=== PATIENT | male | born 1980 | race Caucasian/White ===

== ENCOUNTER 2023-02-09 21:13 | Emergency (ER) | payer OTHER, SELFPAY ==
[2023-02-09 21:15] VITALS: BP 155/101; PULSE 98; RESP 16; TEMP 36.6; O2SAT 99; BMI 28.2
--- NOTE | 2023-02-09 21:28 | EKG12_ITS ---
Test Reason : CP Blood Pressure : / mmHG Vent. Rate : 088 BPM Atrial Rate : 088 BPM P-R Int : 140 ms QRS Dur : 078 ms QT Int : 342 ms P-R-T Axes : 030 055 025 degrees QTc Int : 413 ms Normal sinus rhythm Normal ECG Confirmed by MAYA SAMS, GLORIA ([id number]), associate entertainment editor DENITA CORNELL ([id number]) on 02/12/2023 7:36:19 AM Referred By: Confirmed By:GLORIA TREJO MD
[2023-02-09 21:35] VITALS: O2SAT 99
[2023-02-09 21:39] LABS: Absolute Lymphocyte Count 2.84 X10^3/uL (0.83-4.51); Absolute Neutrophil Count 3.5 X10^3/uL (2.0-7.7); Basophil# 0.04 X10^3/uL; Basophil% 0.5 % (0-1); Eosinophil# 0.39 X10^3/uL; Eosinophils% 5.1 % (0-5); Hematocrit 45.7 % (40-54); Hemoglobin 15.2 g/dL (13.0-16.5); Lymphocyte # 2.84 X10^3/ul (0.83-4.51); Lymphocyte % 37.1 % (19-41); Mean Corp Hgb Conc 33.3 g/dL (32-36); Mean Corpuscular Hgb 29.4 pg (27.0-32.0); Mean Corpuscular Volume 88.4 fL (80-94); Mean Platelet Vol. 8.4 fl (6.2-12.0); Monocyte# 0.88 X10^3/uL; Monocyte% 11.5 % (0-10); NRBC Flagged by Analyzer 0 % (0-5); Neutrophil % 45.7 % (47-70); Platelet Count 387 K/mm3 (150-450); RBC Distribution Width CV 12.9 % (11.6-14.6); RBC Distribution Width SD 41.9 fl (35.1-43.9); Red Blood Count 5.17 M/mm3 (4.6-6.2); White Blood Count 7.7 K/mm3 (4.4-11.0)
--- NOTE | 2023-02-09 21:40 | RAD_ITS ---
STUDY: X-RAY CHEST REASON FOR EXAM: Male, 42 years old. chest pain TECHNIQUE: Single AP portable view of the chest. COMPARISON: None. FINDINGS: The lungs are clear and expanded. There is no demonstrated pleural abnormality. Normal size heart. Normal mediastinum and shahriar. Normal visualized pulmonary arteries. Normal visualized aortic arch and descending thoracic aorta. Normal visualized thoracic spine. Normal visualized ribs, clavicles, and shoulders. There is no demonstrated abnormality of the visualized soft tissue structures of the upper abdomen. RAD/Chest 1 View (Portable) IMPRESSION: Normal x-ray examination of the chest. Electronically Signed: Lowell Contreras MD at 21:58 EDT ,
[2023-02-09 22:20] LABS: Anion Gap 6 (5-15); BUN 17 mg/dL (7-18); BUN/Creat Ratio 15.7 RATIO (10-20); Calcium,Total 8.9 mg/dL (8.5-10.1); Chloride 103 mmol/L (98-107); Creatinine, Serum 1.08 mg/dL (0.70-1.30); EST Glomerular Filtration Rate 80 mL/min (>60); Est Glom Filt Rate - Afr Amer 97 mL/min (>60); Estimated Creatinine Clearance 96.84 ml/min; Glucose 95 mg/dL (74-106); Potassium 3.6 mmol/L (3.5-5.1); Sodium Level 138 mmol/L (136-145); Troponin-I HS (w/2H Reflex) 7 pg/mL (3.0-78.0)
--- NOTE | 2023-02-09 22:42 | EDS_ITS ---
HPI History of Present Illness Chief Complaint: Chest Pain Narrative Narrative: 42-year-old male presenting with chest pain. He states has been having this on and off for about 3 months. Its on the left side of his chest and radiates to the left shoulder. Patient [place] and he is concerned maybe this is causing the pain although he noticed his blood pressure was a little high today. 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 He went home and told his that he was having these pains and she wanted him to come get checked out in the ER. His initial blood pressure was 155/101 but in the room he is now 132/95. He states his pain has been present all day today since 8:00 which makes this about 14 hours in duration. Lightheadedness, dizziness, nauseousness. No fevers or chills. No cough PFSH PFSH Home Medications NK 02/09/23 [History Last Taken Unknown] Allergy/AdvReac Type Severity Reaction Status Date / Time Sulfa (Sulfonamide AdvReac Rash Verified 02/09/23 21:14 Antibiotics) Surgical History History of tonsillectomy Social History Smoking Status: Never smoker ROS ROS ED Constitutional Constitutional ED: Denies chills, fever(s) or sweats Eyes Eyes: Denies blurry vision or change in vision ENT ENT ED: Denies ear pain or sore throat Cardiovascular Cardiovascular: Reports chest pain; Denies palpitations or racing heartbeat Respiratory/Chest Respiratory/Chest: Denies cough, dyspnea or sputum Gastrointestinal Gastrointestinal: Denies abdominal pain, constipation, diarrhea, nausea or vomiting Genitourinary Genitourinary ED: Denies dysuria, hematuria or urinary frequency Musculoskeletal Musculoskeletal: Denies arthralgias, myalgias or neck pain Integumentary Denies abscess, Abrasions or rash Neurologic Neurologic: Denies headache(s), paresthesias or weakness Psychiatric Psychiatric: Denies anxiety, depression, suicidal ideation or suicidal thoughts Endocrine Endocrinology: Denies polydipsia or polyuria EXAM Physical Exam Const Vital Signs: 02/09/23 21:15 02/09/23 21:23 02/09/23 21:35 Temperature 97.9 F Temperature Source Temporal Pulse Rate 98 Respiratory Rate 16 Respiratory Effort Normal Non-Labored Blood Pressure 155/101 H Blood Pressure Mean 119 Pulse Ox 99 99 Oxygen Delivery Method Room Air Room Air Positive well nourished General Appearance ED: NAD; Negative for pallor HEENT Reports moist mucous membranes normocephalic and atraumatic Eyes PERRL Chest Wall inspection of chest normal and palpation of chest normal Resp normal respiratory effort and clear to auscultation bilaterally Auscultation: Negative for rales, rhonchi or wheezes Cardio regular rate and regular rhythm Extremity normal to inspection Neuro oriented x3 and CN's II-XII intact bilaterally Sensorium / Orientation: awake and alert Psych mental status grossly normal Skin no rashes or lesions noted General Skin Exam: Negative for jaundice or pallor Heart Score History: Slightly/Non-Suspicious ECG: Normal Age: </= 45 years Risk Factors: No Risk Factors Troponin: </= Normal Limit Score: 0 MDM MDM MDM Narrative Medical decision making narrative: 42-year-old male presenting with left-sided chest pain which has been off for months. Today its been constant all day for like 14 hours. Patient has no other associated symptoms. His blood pressures been a little elevated today but it is normalized to 133/95. Although this is still a little elevated its not as high/presenting blood pressure. He states he does not typically have high blood pressure but he is a little nervous. Differential includes acute coronary syndrome, pneumonia, costochondritis, dehydration, electrolyte normalities, hype rtension. Considered PE but he is PERC negative. I do not believe he has a dissection is not having repair tearing pain in his not severely hypertensive. CBC obtained and shows no white count. Hemoglobin hematocrit are stable. Platelets are normal. Renal function electrolytes appear to be within normal limits. High-sensitivity troponin is 7. Given that he has had pain all day and he has a troponin of 7 I do not believe he needs a repeat troponin. Chest x-ray my interpretation shows no acute process. Radiologist interprets this and agrees. I counseled the patient to continue to monitor his blood pressure at home and follow-up with his PCP to ensure that this is followed he reports to me that he did have a stress test in April which is normal which is reassuring. Impression: 1. Chest pain 2. High blood pressure Lab Data Attestation: I reviewed the patient's lab results. Labs: Laboratory Results - last 24 hr 02/09/23 02/09/23 21:30 21:57 WBC 7.7 RBC 5.17 Hgb 15.2 Hct 45.7 MCV 88.4 MCH 29.4 MCHC 33.3 RDW Std Deviation 41.9 RDW Coeff of Caron 12.9 Plt Count 387 MPV 8.4 Immature Gran % (Auto) 0.100 Neut % (Auto) 45.7 L Lymph % (Auto) 37.1 Crisp % (Auto) 11.5 H Eos % (Auto) 5.1 H Baso % (Auto) 0.5 Absolute Neuts (auto) 3.5 Absolute Lymphs (auto) 2.84 Nucleated RBC % 0 Sodium 138 Potassium 3.6 Chloride 103 Carbon Dioxide 29.0 Anion Gap 6 BUN 17 Creatinine 1.08 Estim Creat Clear Calc 96.84 Est GFR (MDRD) Af Amer 97 Est GFR (MDRD) Non-Af 80 BUN/Creatinine Ratio 15.7 Glucose 95 Calcium 8.9 Troponin I High Sens 7 Radiography Diagnostic Testing: Clinical Impression(s) from Imaging Studies Chest X-Ray 02/09/23 21:40 IMPRESSION: Normal x-ray examination of the chest. Electronically Signed: Lowell Contreras MD at 21:58 EDT , Discharge Plan Triage Chief Complaint: Chest Pain ED Provider: Jeremy Ramirez Dx/Rx/DC Orders Instructions: ED Chest Pain, Noncardiac, ED Hypertension, To Be Confirmed Prescriptions: No Action NK Primary Care Provider: Care Physician,No Primary Referrals: Claudia Azevedo, [Non-Staff] - Care Physician,No Primary [Primary Care Provider] - Disposition Disposition: Home, Self Care
[2023-02-09 23:05] VITALS: BP 131/97; PULSE 85; RESP 17; O2SAT 98
[2023-02-10] LABS: Reflex Troponin-HS? (from REC) Y
== END 2023-02-09 23:06 | disposition home or self-care (01) ==
PROVIDERS: Emergency Provider Student in an Organized Health Care Education/Training Program; Visit Provider Student in an Organized Health Care Education/Training Program
DX: R07.9 Chest pain, unspecified (principal); I10 Essential (primary) hypertension
CPT/HCPCS: 71045; 80048; 84484; 85025; 93005; 99284; A4216